=== PATIENT | male | born 1990 | race Caucasian/White ===

== ENCOUNTER 2018-11-30 00:03 | Emergency (ER) | payer SELFPAY ==
[~2018-11-30] VITALS: Ht 172.7 cm; Wt 62.3 kg
[2018-11-30 01:37] VITALS: BP 151/120
== END 2018-11-30 02:20 | disposition home or self-care (01) ==
LOC: EMS 00:07
DX: S00.01XA Abrasion of scalp, initial encounter (principal); X58.XXXA Exposure to other specified factors, initial encounter; Y93.89 Activity, other specified; Y92.89 Other specified places as the place of occurrence of the external cause; Y99.8 Other external cause status